=== PATIENT | male | born 1995 | race Caucasian/White ===

== ENCOUNTER 2018-06-12 23:13 | Outpatient (CLI) | payer OTHER | END 2018-06-12 23:14 | disposition critical access hospital (66) | LOC: EMS 23:13 | PROVIDERS: ATTEND Surgery | DX: R51 Headache (principal); R11.2 Nausea with vomiting, unspecified | CPT/HCPCS: A0425; A0427 ==

== ENCOUNTER 2018-06-13 23:31 | Emergency (ER) | payer OTHER ==
--- NOTE | 2018-06-13 23:31 | ED Physician Documentation ---
PD HPI HEAD INJURY - Stated complaint Stated Complaint: HEADACHE SP HITTING HEAD - History obtained from History obtained from: Patient, EMS - History of Present Illness Mechanism of head injury: Fell Where head injury occurred: [place] Pain level now: 8 Location of injury: Right, Left, Front Quality of pain: Pain Associated symptoms: LOC, Nausea / vomiting. No: Neck pain Symptoms improve with: Rest Symptoms worsen with: Other (opening eyes) Contributing factors: No: Anticoagulated, Intoxicated Recently seen: Not recently seen - Additional information Additional information: was playing football tonight. This was flag football, and thus wasn't wearing protective equipment including helmet (was not wearing a helmet). He caught the ball, falling backwards and landed on his buttocks, with the back of his head then hitting the ground. He had LOC, unknown amount of time. He was initially evaluated by medics at that time but refused transport. He now is agreeable to transport due to worsening bifrontal headache, nausea and vomiting. Received 4mg IV zofran en route. Injury occurred approximately 20:00 tonight Review of Systems Eyes: reports: Reviewed and negative Cardiac: reports: Reviewed and negative Respiratory: reports: Reviewed and negative GI: reports: Nausea, Vomiting. denies: Abdominal Pain Musculoskeletal: reports: Reviewed and negative. denies: Neck pain, Back pain Neurologic: reports: Headache, Head injury, LOC. denies: Generalized weakness, Focal weakness, Numbness PD PAST MEDICAL HISTORY - Past Medical History Past Medical History: No - Present Medications Home Medications: Ambulatory Orders Medication Instructions Recorded Confirmed Hydrocodone/Acetaminophen 1 - 2 each PO Q6HR PRN #14 tablet 06/14/18 [Hydrocodon-Acetaminophen 5-325] Ondansetron Odt [Zofran] 4 mg TL Q6H PRN #10 tablet 06/14/18 - Allergies Allergies/Adverse Reactions: Allergies Allergy/AdvReac Type Severity Reaction Status Date / Time No Known Drug Allergies Allergy Verified 06/13/18 23:42 - Living Situation Living Arrangement: reports: At home PD ED PE NORMAL - Vitals Vital signs reviewed: Yes - General General: Alert and oriented X 3, No acute distress, Well developed/nourished - HEENT HEENT: Atraumatic, PERRL, EOMI, Moist mucous membranes - Neck Neck: No bony TTP - Cardiac Cardiac: RRR, No murmur - Abdomen Abdomen: Soft, Non tender - Neuro Neuro: Alert and oriented X 3, 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, No motor deficit, No sensory deficit, Normal speech Eye Opening: Spontaneous Motor: Obeys Commands Verbal: Oriented GCS Score: 15 Results - Rads (name of study) CT head Radiology: Prelim report reviewed, See rad report PD MEDICAL DECISION MAKING - ED course Complexity details: reviewed results, re-evaluated patient, considered differential, d/w patient Departure - Departure Disposition: 01 Home, Self Care Clinical Impression: Concussion Condition: Good Instructions: ED Concussion Follow-Up: JERARDO Garcia [Provider Group] Prescriptions: Hydrocodone/Acetaminophen [Hydrocodon-Acetaminophen 5-325] 1 - 2 each PO Q6HR PRN #14 tablet PRN Reason: Pain Ondansetron Odt [Zofran] 4 mg TL Q6H PRN #10 tablet PRN Reason: Nausea / Vomiting Forms: Activity restrictions Discharge Date/Time: 06/14/18 01:39
[2018-06-13] MEDS ORDERED: MORPHINE 2 MG/ML CARPUJECT IM STA (23:39)
[2018-06-14 00:21] VITALS: BP 127/55
--- NOTE | 2018-06-14 00:43 | CT Report ---
Reason: head injury, LOC Procedure Date: 06/14/2018 Accession Number: [id number] / [id number] Procedure: CT - Head W/O CPT Code: FULL RESULT: EXAM: CT HEAD EXAM DATE: 06/14/2018 12:14 AM. CLINICAL HISTORY: Head injury, loss of consciousness. COMPARISON: None. TECHNIQUE: Multiaxial CT images were obtained from the foramen magnum to the vertex. Reformats: Sagittal and coronal. IV contrast: None. In accordance with CT protocol optimization, one or more of the following dose reduction techniques were utilized for this exam: automated exposure control, adjustment of mA and/or KV based on patient size, or use of iterative reconstructive technique. FINDINGS: Parenchyma: No intraparenchymal hemorrhage. No evidence of mass, midline shift, or CT findings of infarction. Simeon-white differentiation is distinct. Extraaxial Spaces: Normal for age. No subdural or epidural collections identified. Ventricles: Normal in size and position. Sinuses and Orbits: Imaged paranasal sinuses, orbits, and mastoids show no significant abnormality. Bones: No evidence of fracture or calvarial defect. Other: None. IMPRESSION: No acute or focal intracranial abnormality. [facility]
[2018-06-14] MEDS ORDERED: HYDROcod/ACET 5/325 Prepack 4 PO STA (01:12)
[2018-06-14] MEDS ORDERED: ONDANSETRON ODT 4 MG Prepack 2 TL STA (01:12)
== END 2018-06-14 01:39 | disposition home or self-care (01) ==
LOC: EDSEX → ED 23:31
DX: S06.0X9A Concussion with loss of consciousness of unspecified duration, initial encounter (principal); W18.30XA Fall on same level, unspecified, initial encounter; Y93.62 Activity, american flag or touch football; Y92.830 Public park as the place of occurrence of the external cause; W22.09XA Striking against other stationary object, initial encounter
CPT/HCPCS: 70450; 96372; 99283